=== PATIENT | female | born 1980 | race African-American/Black ===

== ENCOUNTER 2016-09-13 02:41 | Emergency (ER) | payer MEDICAID, OTHER ==
[~2016-09-13] VITALS: Ht 160 cm; Wt 103.0 kg
[2016-09-13] MEDS ORDERED: CEFAZOLIN 1000MG PREMIX 50 ML IV ONE (04:15)
[2016-09-13] MEDS ORDERED: MORPHINE SULFATE 4 MG/ML CPJ (NOT FOR IM USE) IV ONE (04:15)
[2016-09-13] MEDS ORDERED: LIDOCAINE HCL 1% 20ML VIAL (Pyxis) INJ INFIL NR (07:30)
[2016-09-13] MEDS ORDERED: MORPHINE SULFATE 4 MG/ML CPJ (NOT FOR IM USE) IV NR (07:30)
[2016-09-13] MEDS ORDERED: TETANUS, DIPHTHERIA, PERTUSSIS VAC/PF 0.5ML (>7YR OLD) IM ONE (08:15)
[2016-09-13 09:30] VITALS: BP 117/63
== END 2016-09-13 09:30 | disposition home or self-care (01) ==
LOC: ER 02:43
DX: S91.012A Laceration without foreign body, left ankle, initial encounter (principal); S93.402A Sprain of unspecified ligament of left ankle, initial encounter; S20.219A Contusion of unspecified front wall of thorax, initial encounter; V89.0XXA Person injured in unspecified motor-vehicle accident, nontraffic, initial encounter; Y93.89 Activity, other specified; Y92.89 Other specified places as the place of occurrence of the external cause; Y99.8 Other external cause status
CPT/HCPCS: 12002; 71111; 73610; 90471; 90715; 93005; 96365; 96375; 96376; 99284; J0690; J2270; J3490; X7700; Z7610

== ENCOUNTER 2016-09-22 10:51 | Inpatient (IN) | payer MEDICAID ==
[~2016-09-22] VITALS: Ht 160 cm; Wt 108.9 kg
[2016-09-22] MEDS ORDERED: SODIUM CHLORIDE 0.9% 1,000 ML IV ONE (12:15)
[2016-09-22] MEDS ORDERED: MORPHINE SULFATE 4 MG/ML CPJ (NOT FOR IM USE) IV ONE (12:15)
[2016-09-22] MEDS ORDERED: ONDANSETRON HCL 4MG/2ML VIAL IV ONE (12:30)
[2016-09-22] MEDS ORDERED: VANCOMYCIN 1 G PREMIX 200 ML IV SCH (13:00)
[2016-09-22 13:24] LABS: HEMATOCRIT. 32.1 % (36.0-48.0); HEMOGLOBIN. 10.6 g/dL (12.0-16.0); MEAN CORPUSCULAR HEMOGLOBIN 27.9 pg (28.0-32.0); MEAN CORPUSCULAR HGB CONC 32.9 g/dL (31.0-37.0); PLATELET 303 x1000/uL (130-400); RED BLOOD CELL COUNT 3.78 mill/uL (4.2-5.4); RED CELL DISTRIBUTION WIDTH 13.3 % (11.6-14.6); WHITE BLOOD COUNT 7.7 x1000/uL (4.5-11.0)
[2016-09-22 13:25] LABS: CHLORIDE 104 mEq/L (98-107); INDEX HEMOLYSI 1 (1-3); INDEX ICTERIC 1 (1-4); INDEX LIPEMIC 1 (1-3)
[2016-09-22 13:26] LABS: CLARITY URINE CLEAR (CLEAR); COLOR URINE YELLOW (YELLOW); GLUCOSE URINE NEGATIVE (NEGATIVE); KETONES URINE NEGATIVE (NEGATIVE); LEUKOCYTE ESTERASE URINE 1+ (NEGATIVE); NITRITE URINE NEGATIVE (NEGATIVE); OCCULT BLOOD URINE NEGATIVE (NEGATIVE); PH URINE 7.5 (4.5-8.0); PROTEIN URINE NEGATIVE (NEGATIVE); SPECIFIC GRAVITY URINE 1.018 (1.005-1.030)
[2016-09-22 13:31] LABS: ANION GAP 9; CALCIUM 8.3 mg/dL (8.5-10.1); CARBON DIOXIDE 29 mEq/L (21-32); UREA NITROGEN BLOOD 9 mg/dL (7-21); eGFR > 60 mL/min (>60)
[2016-09-22 13:43] LABS: RBC URINE 0-2 /hpf (0-2); SQUAMOUS EPITHELIAL CELL URINE 2+ /lpf (RARE/1+)
[2016-09-22 13:44] LABS: BACTERIA URINE 1+
[2016-09-22 14:00] LABS: PLATELET ESTIMATE NORMAL
[2016-09-22] MEDS ORDERED: PIPERACILLIN/TAZOBACTAM 3.375GM/50ML PREMIX IV ONE (14:00)
[2016-09-22] MEDS ORDERED: PIPERACILLIN/TAZ 3.375G PREMIX 50 ML IV NR (14:00)
[2016-09-22 14:22] LABS: PARTIAL THROMBOPLASTIN TIME 24.3 sec (24.0-34.0)
[2016-09-22 14:34] LABS: HCG SCREEN NEGATIVE
[2016-09-22 16:00] VITALS: BP 100/68
[2016-09-22 16:30] VITALS: BP 116/89
[2016-09-22] MEDS ORDERED: IPRATROPIUM/ALBUTEROL 0.5-3(2.5)MG/3ML NEB INH PRN (17:15)
[2016-09-22] MEDS ORDERED: METOLAZONE 10MG TABLET PO NR (17:15)
[2016-09-22] MEDS ORDERED: ZOLPIDEM TARTRATE 5MG TABLET PO PRN (17:15)
[2016-09-22] MEDS ORDERED: CLONIDINE 0.1MG TABLET PO PRN (17:15)
[2016-09-22] MEDS ORDERED: NITROGLYCERIN 0.4MG TABLET SL SL PRN (17:15)
[2016-09-22] MEDS ORDERED: MAGNESIUM/ALUMINUM HYDROXIDE/SIMETHICONE 30ML UDC PO PRN (17:15)
[2016-09-22] MEDS ORDERED: ACETAMINOPHEN 325MG TABLET PO PRN (17:15)
[2016-09-22] MEDS ORDERED: DOCUSATE SODIUM 100MG CAPSULE PO PRN (17:15)
[2016-09-22] MEDS ORDERED: LORAZEPAM 2MG/ML CPJ IV PRN (17:15)
[2016-09-22] MEDS ORDERED: NA PHOS,M-B/NA PHOS,DI-BA ENEMA 118ML PR PRN (17:15)
[2016-09-22] MEDS: KETOROLAC 30MG/ML VIAL IV PRN (17:58)
[2016-09-22] MEDS ORDERED: VANCOMYCIN 1500MG in DEXTROSE 5% WATER 250ML IV NR (20:00)
[2016-09-22 20:15] VITALS: BP 118/84
[2016-09-22] MEDS ORDERED: ENOXAPARIN 40MG/0.4ML SYR SUBCUT SCH (21:00)
[2016-09-22] MEDS: RIVAROXABAN 15 MG TABLET PO SCH (21:19)
[2016-09-22] MEDS: ASCORBIC ACID 500 MG TABLET PO SCH (21:19)
[2016-09-23] VITALS: BP 100/62
[2016-09-23] MEDS ORDERED: PIPERACILLIN/TAZ 3.375G PREMIX 50 ML IV SCH
[2016-09-23 00:24] LABS: *AMPHETAMINES SCREEN URINE NEGATIVE (NEGATIVE); *BARBITURATES SCREEN URINE NEGATIVE (NEGATIVE); *COCAINE SCREEN URINE NEGATIVE (NEGATIVE); CANNABINOID URINE SCREEN NEGATIVE (NEGATIVE); ECSTASY MDMA SCREEN URINE NEGATIVE (NEGATIVE); METHADONE URINE SCREEN NEGATIVE (NEGATIVE); PHENCYCLIDINE URINE SCREEN NEGATIVE (NEGATIVE)
[2016-09-23 00:26] LABS: *BENZODIAZEPINES SCREEN URINE PRESUMTIVE POSITIVE (NEGATIVE); OPIATES URINE SCREEN PRESUMTIVE POSITIVE (NEGATIVE)
[2016-09-23] MEDS: PIPERACILLIN/TAZ 3.375G PREMIX 50 ML IV SCH ×3 (01:55→13:32)
[2016-09-23 04:00] VITALS: BP 111/75
[2016-09-23] MEDS ORDERED: VANCOMYCIN 750 MG PREMIX 150 ML IV SCH (04:00)
[2016-09-23 08:00] VITALS: BP 107/71
[2016-09-23] MEDS: ASCORBIC ACID 500 MG TABLET PO SCH (08:24)
[2016-09-23] MEDS: RIVAROXABAN 15 MG TABLET PO SCH ×2 (08:25→17:10)
[2016-09-23] MEDS: ONDANSETRON HCL 4MG/2ML VIAL IV PRN ×2 (08:49→17:13)
[2016-09-23] MEDS: KETOROLAC 30MG/ML VIAL IV PRN (13:40)
[2016-09-23 13:54] VITALS: BP 109/73
[2016-09-23] MEDS ORDERED: VANCOMYCIN 1 G PREMIX 200 ML IV SCH (18:00)
== END 2016-09-23 17:40 | disposition home or self-care (01) | DRG 383 ==
LOC: ER 12:18 → 8WST 13:58
PROVIDERS: ADMIT Internal Medicine; ATTEND Internal Medicine
DX: L03.311 Cellulitis of abdominal wall (principal); I82.402 Acute embolism and thrombosis of unspecified deep veins of left lower extremity; Z68.41 Body mass index [BMI] 40.0-44.9, adult; S30.1XXA Contusion of abdominal wall, initial encounter; D64.9 Anemia, unspecified; M79.1 Myalgia; E66.01 Morbid (severe) obesity due to excess calories; Z98.51 Tubal ligation status; V49.9XXA Car occupant (driver) (passenger) injured in unspecified traffic accident, initial encounter; Y93.89 Activity, other specified; Y92.89 Other specified places as the place of occurrence of the external cause; Y99.8 Other external cause status
CPT/HCPCS: 36415; 74177; 80048; 80305; 81001; 83036; 83605; 84703; 85007; 85027; 85610; 85730; 87040; 93970; 96365; 96366; 96367; 96375; 99285; J1885; J2270; J2405; J2543; J3370; J7030; J7050; J7060

== ENCOUNTER 2018-04-20 08:59 | Emergency (ER) | payer MEDICAID ==
[~2018-04-20] VITALS: Ht 160 cm; Wt 108.0 kg
[2018-04-20] MEDS ORDERED: ASPIRIN/ACETAMINOPHEN/CAFFEINE 250/250/65MG TABLET PO STA (10:32)
[2018-04-20 10:51] LABS: CLARITY URINE CLOUDY (CLEAR); COLOR URINE YELLOW (YELLOW); KETONES URINE TRACE (NEGATIVE); LEUKOCYTE ESTERASE URINE 2+ (NEGATIVE); NITRITE URINE POSITIVE (NEGATIVE); OCCULT BLOOD URINE TRACE (NEGATIVE); PH URINE 7.5 (4.5-8.0); PROTEIN URINE TRACE (NEGATIVE); SPECIFIC GRAVITY URINE 1.026 (1.005-1.030)
[2018-04-20 12:47] VITALS: BP 125/75
== END 2018-04-20 12:49 | disposition home or self-care (01) ==
LOC: ER 08:59
DX: N39.0 Urinary tract infection, site not specified (principal); J02.9 Acute pharyngitis, unspecified
CPT/HCPCS: 81025; 87077; 87186; 99283